=== PATIENT | female | born 1965 | race Caucasian/White ===

== ENCOUNTER 2018-05-12 18:05 | Emergency (ER) | payer BC, OTHER ==
[~2018-05-12] VITALS: Ht 162.6 cm; Wt 96.2 kg
[2018-05-12 18:11] VITALS: BP 162/89
== END 2018-05-12 19:28 | disposition home or self-care (01) ==
LOC: ED 19:22
DX: S86.112A Strain of other muscle(s) and tendon(s) of posterior muscle group at lower leg level, left leg, initial encounter (principal); S80.12XA Contusion of left lower leg, initial encounter; Z86.718 Personal history of other venous thrombosis and embolism; X58.XXXA Exposure to other specified factors, initial encounter; Y93.89 Activity, other specified; Y92.89 Other specified places as the place of occurrence of the external cause; Y99.8 Other external cause status
CPT/HCPCS: 99284

== ENCOUNTER 2019-06-20 18:38 | Emergency (ER) | payer OTHER ==
[~2019-06-20] VITALS: Ht 162.6 cm; Wt 86.0 kg
[2019-06-20 19:51] LABS: BASOPHILS # (AUTO) 0.06 x10^3/uL (0-0.1); BASOPHILS % (AUTO) 1 % (0-1); EOSINOPHILS # (AUTO) 0.44 x10^3/uL (0-0.4); EOSINOPHILS % (AUTO) 6 % (1-7); LYMPHOCYTES # (AUTO) 3.61 x10^3/uL (1-3.4); LYMPHOCYTES % (AUTO) 49 % (22-44); MD NO; MEAN CORPUSCULAR HGB CONC 33.2 g/dL (32.4-35.8); MEAN CORPUSCULAR VOLUME 90.4 fL (80-100); MEAN PLATELET VOLUME 6.7 fL (7.4-10.4); MONOCYTES # (AUTO) 0.41 x10^3/uL (0.2-0.8); MONOCYTES % (AUTO) 6 % (2-9); NEUTROPHILS # (AUTO) 2.88 x10^3/uL (1.8-6.8); NEUTROPHILS % (AUTO) 39 % (42-75); PLATELET COUNT 364 x10^3/uL (130-400); RED BLOOD COUNT 4.39 x10^6/uL (3.82-5.3); RED CELL DISTRIBUTION WIDTH 14.1 % (9.6-15.2)
[2019-06-20 20:42] LABS: ANION GAP 7 mmol/L (5-15); CALCIUM 9.5 mg/dL (8.5-10.1); CHLORIDE 108 mmol/L (98-107)
[2019-06-20 20:49] LABS: ALANINE AMINOTRANSFERASE 24 U/L (12-78); ALKALINE PHOSPHATASE 70 U/L (45-117); BILIRUBIN,TOTAL 0.4 mg/dL (0.2-1.0); CREATININE 0.53 mg/dL (0.55-1.02); TOTAL PROTEIN 7.7 g/dL (6.4-8.2); TROPONIN I < 0.015 ng/mL (0.000-0.045)
--- NOTE | 2019-06-20 21:26 | NUR ---
PT TO ROOM FROM LOBBY
--- NOTE | 2019-06-20 21:40 | NUR ---
HELEN BRAGG BS FOR EXAM, USING PUBLIC HEALTH ADMINISTRATOR VIA PHONE. PT'S NIECE AND FRIEND IN ROOM
--- NOTE | 2019-06-20 21:57 | NUR ---
PT AMBULATORY TO & FROM BR W/OUT INCIDENT; GAIT STEADY. VOIDED SPECIMEN PROVIDED.
[2019-06-20] MEDS ORDERED: DAFLON (22:00)
--- NOTE | 2019-06-20 22:03 | NUR ---
VO FROM HELEN PACHECO: CANCEL UA ORDER.
--- NOTE | 2019-06-20 22:04 | NUR ---
HELEN PACHECO TO DISCUSS POC. NIECE'S FRIEND TRANSLATING.
[2019-06-20] MEDS ORDERED: KETOROLAC 30 MG/1 ML ONE (22:18)
--- NOTE | 2019-06-20 22:25 | NUR ---
TORADOL GIVEN PER EMAR
[2019-06-20 22:30] VITALS: BP 150/85
[2019-06-20] MEDS ORDERED: KETOROLAC 30 MG/1 ML IM ONE (22:30)
== END 2019-06-20 22:35 | disposition home or self-care (01) ==
LOC: ED 22:10
DX: M25.411 Effusion, right shoulder (principal); M77.9 Enthesopathy, unspecified; M54.6 Pain in thoracic spine; Z86.718 Personal history of other venous thrombosis and embolism; R94.31 Abnormal electrocardiogram [ECG] [EKG]
CPT/HCPCS: 36415; 73030; 76700; 80053; 83690; 84484; 85025; 93005; 96372; 99285; J1885